=== PATIENT | male | born 1955 | race Caucasian/White ===

== ENCOUNTER → 2016-10-26 | Outpatient (CLI) | payer OTHER ==
[~2016-10-26] VITALS: Ht 190.5 cm; Wt 110.0 kg
[~2016-10-26] MED LIST: B COMPLETE1 EACH PO; B COMPLEX #11 EACH PO; B-100 COMPLEX1 EACH PO; BRAND FLOMAX0.4 MG PO; CLARITIN10 M3 PO; COLACE100 MG PO; COMBIVENT200 INHALA IH; Combivent IH; DOCUSATE SODIU100 MG PO; EXELON PATCH9.5 MG TD; EXTRA STRENGTH500 MG PO; Ecotrin PO; FLOMAX0.4 MG PO; FLONASE16 G1 BOTH NARES; FLOVENT 44120 INHALA IH; GABAPENTIN100 M1 PO; HYDROCHLOROTHIA25 MG PO; LEXAPRO20 MG PO; LOW DOSE ASPIRI81 M2 PO; METOPROLOL SUCC25 MG PO; MULTIVITAMIN1 EAC1 PO; NEURONTIN300 MG PO; PERCOCET 5-3251 EACH PO; PREDNISONE20 MG PO; PRILOSEC20 MG PO; PRILOSEC40 MG PO; PROTONIX40 MG PO; RISPERDAL1 MG PO; ROCALTROL0.25 MCG PO; SIMVASTATIN40 M1 PO; SIMVASTATIN40 MG PO; STOOL SOFTENER100 MG PO; SYMBICORT60 INHALAT IH; TYLENOL EXTRA500 MG PO; VENTOLIN HFA18 GM IH; VITAMIN D-32000 UNI2 PO; ZITHROMAX Z-PA250 MG PO
== END | disposition home or self-care (01) ==
LOC: AMB 10-19 12:00
PROC: 0DJD8ZZ Inspection of Lower Intestinal Tract, Via Natural or Artificial Opening Endoscopic (ICD-10-PCS; principal; 2016-10-26)
DX: Z12.11 Encounter for screening for malignant neoplasm of colon (principal); Z85.528 Personal history of other malignant neoplasm of kidney

== ENCOUNTER → 2016-12-15 | Outpatient (CLI) | payer OTHER | END | disposition home or self-care (01) | LOC: EEG 09:47 | DX: R94.01 Abnormal electroencephalogram [EEG] (principal) | CPT/HCPCS: 95954 ==

== ENCOUNTER → 2017-12-25 | Outpatient (CLI) | payer OTHER ==
[~2017-12-25] MED LIST changes: +ACID CONTROL150 MG PO; +CLARITIN,ALAVAR10 MG PO; +RISPERDAL3 MG PO; +VITAMIN D31000 UNI2 PO
[2017-12-25 10:11] LABS: HEMOGLOBIN 9.5 G/DL (12.5-16.6); MCH 24.4 PG (29.0-34.0); MCHC 30.6 G/DL (30.0-36.0); MCV 79.7 FL (86-99); PLATELET COUNT 562 K/uL (156-360); RBC DIS.WIDTH-CV 15.8 % (11.8-14.6); RBC DIS.WIDTH-SD 45.3 % (39-53); RED BLOOD COUNT 3.89 M/uL (4.00-5.50); WHITE BLOOD COUNT 12.7 K/uL (4.1-10.2)
== END | disposition home or self-care (01) ==
LOC: OPR 09:35 → EDSTATUS 10:00
PROVIDERS: Internal Medicine
PROC: 0TB03ZX Excision of Right Kidney, Percutaneous Approach, Diagnostic (ICD-10-PCS; principal; 2017-12-25)
DX: C79.01 Secondary malignant neoplasm of right kidney and renal pelvis (principal); D50.9 Iron deficiency anemia, unspecified; Z87.891 Personal history of nicotine dependence
CPT/HCPCS: 77012; 85027; 88305; 88341 TC; 88342 TC

== ENCOUNTER 2018-03-06 16:16 | Emergency (ER) | payer OTHER ==
[~2018-03-06] VITALS: Ht 190.5 cm; Wt 91.4 kg
[2018-03-06 17:39] LABS: HEMATOCRIT 31.3 % (38.0-50.0); HEMOGLOBIN 10.4 G/DL (12.5-16.6); MCH 27.4 PG (29.0-34.0); MCHC 33.2 G/DL (30.0-36.0); MCV 82.6 FL (86-99); PLATELET COUNT 292 K/uL (156-360); RBC DIS.WIDTH-SD 67.2 % (39-53); RED BLOOD COUNT 3.79 M/uL (4.00-5.50)
[2018-03-06 17:44] LABS: INTER. NORMALIZED RATIO 1.3
[2018-03-06 17:47] LABS: PTT 27.6 SEC (25-37)
[2018-03-06 17:52] LABS: CHLORIDE 100 mEq/L (99-109); POTASSIUM 3.9 mEq/L (3.7-5.4); SODIUM 136 mEq/L (136-147)
[2018-03-06 17:53] LABS: GLUCOSE 134 mg/dL (70-99)
[2018-03-06 17:57] LABS: CREATININE 1.7 mg/dL (0.6-1.3); GFR ESTIMATE (CALCULATED) 44 mL/min/ (58.99-99999)
[2018-03-06 17:58] LABS: UREA NITROGEN (BUN) 25 mg/dL (9-23)
[2018-03-06 22:00] VITALS: BP 91/56
== END 2018-03-06 22:01 | disposition short-term general hospital (02) ==
LOC: EME 16:16
PROVIDERS: Physician Assistant
DX: I82.402 Acute embolism and thrombosis of unspecified deep veins of left lower extremity (principal); M25.762 Osteophyte, left knee; R94.31 Abnormal electrocardiogram [ECG] [EKG]; N18.3 Chronic kidney disease, stage 3 (moderate); F03.90 Unspecified dementia, unspecified severity, without behavioral disturbance, psychotic disturbance, mood disturbance, and anxiety; W19.XXXA Unspecified fall, initial encounter; Z87.891 Personal history of nicotine dependence; Z87.39 Personal history of other diseases of the musculoskeletal system and connective tissue; Z87.19 Personal history of other diseases of the digestive system; Z87.81 Personal history of (healed) traumatic fracture; Z85.528 Personal history of other malignant neoplasm of kidney; Z85.118 Personal history of other malignant neoplasm of bronchus and lung; Z90.5 Acquired absence of kidney; Z90.49 Acquired absence of other specified parts of digestive tract; Z90.81 Acquired absence of spleen; Z88.5 Allergy status to narcotic agent; Z88.8 Allergy status to other drugs, medicaments and biological substances
CPT/HCPCS: 73564; 80048; 85027; 85610; 85730; 93005; 93971; 99281; 99285